=== PATIENT | female | born 1950 | race Hispanic/Latino ===

== ENCOUNTER → 2021-08-13 | Outpatient (CLI) | payer MEDICARE | LOC: RAD 11:27 | PROVIDERS: ATTEND Internal Medicine | DX: M54.50 Low back pain, unspecified (principal); M54.6 Pain in thoracic spine; M41.84 Other forms of scoliosis, thoracic region | CPT/HCPCS: 71046; 72070; 72110; 72220 ==

== ENCOUNTER → 2021-09-11 | Outpatient (CLI) | payer MEDICARE | LOC: RAD 12:30 | PROVIDERS: ATTEND Internal Medicine | DX: M25.551 Pain in right hip (principal); M54.50 Low back pain, unspecified; M85.88 Other specified disorders of bone density and structure, other site | CPT/HCPCS: 72110; 72220 ==